=== PATIENT | female | born 1990 | race Caucasian/White ===

== ENCOUNTER 2021-07-21 18:19 | Emergency (ER) | payer OTHER ==
[~2021-07-21 18:19] MED LIST: MACROBID 100 M100 MG PO; ZOFRAN ODT 4 MG4 MG PO
[2021-07-21 20:19] LABS: HEMOGLOBIN 15.7 gm/dl (12.3-15.3); RED BLOOD COUNT 4.95 M/UL (4.00-5.10); WHITE BLOOD COUNT 13.5 K/UL (4.5-11.0)
[2021-07-21 20:54] LABS: BUN/CREATININE RATIO 20 (0-10)
[2021-07-21] MEDS ORDERED: ZOFRAN ODT 4 MG4 MG PO (22:08)
[2021-07-21] MEDS ORDERED: LODINE CAP 300300 MG PO (22:08)
[2021-07-21] MEDS ORDERED: BENTYL 20MG TAB20 MG PO (22:08)
[2021-07-21] MEDS ORDERED: FLORASTOR250 MG PO (22:10)
[2021-07-22] MEDS ORDERED: ZOFRAN ODT 4 MG4 MG SL (11:47)
[2021-07-22] MEDS ORDERED: PHENERGAN 12.12.5 M1 PO (11:47)
== END 2021-07-21 22:50 | disposition home or self-care (01) ==
LOC: ER1 18:19
PROVIDERS: Physician Assistant
DX: R10.84 Generalized abdominal pain (principal); R11.2 Nausea with vomiting, unspecified; R19.7 Diarrhea, unspecified; Z20.822 Contact with and (suspected) exposure to COVID-19
CPT/HCPCS: 80053; 81001; 83690; 84703; 85025; 87086; 96374; 96375; 99284; J1885; J2405; J7030; U0002

== ENCOUNTER 2021-07-22 08:52 | Emergency (ER) | payer OTHER ==
[~2021-07-22 08:52] MED LIST changes: +BENTYL 20MG TAB20 MG PO; +FLORASTOR250 MG PO; +LODINE CAP 300300 MG PO
[2021-07-22 10:22] LABS: BUN/CREATININE RATIO 18 (0-10)
[2021-07-22 10:24] LABS: HEMOGLOBIN 15.2 gm/dl (12.3-15.3); RED BLOOD COUNT 4.96 M/UL (4.00-5.10); WHITE BLOOD COUNT 8.6 K/UL (4.5-11.0)
[2021-07-22] MEDS ORDERED: ZOFRAN ODT 4 MG4 MG SL (11:47)
[2021-07-22] MEDS ORDERED: PHENERGAN 12.12.5 M1 PO (11:47)
== END 2021-07-22 12:50 | disposition home or self-care (01) ==
LOC: ER1 08:52
PROVIDERS: Emergency Medicine
DX: R11.2 Nausea with vomiting, unspecified (principal); R51.9 Headache, unspecified
CPT/HCPCS: 80053; 83690; 84703; 85025; 96374; 96375; 99284; J0780; J1200